=== PATIENT | female | born 1935 | race Caucasian/White ===

== ENCOUNTER 2017-08-25 08:24 | Outpatient (CLI) | payer MEDICARE, BC ==
--- NOTE | 2017-08-25 11:42 | MMO ---
BILATERAL SCREENING MAMMOGRAM: HISTORY: Annual screening exam. COMPARISON: 08/11/2016, 08/05/2015, 08/02/2014, 08/02/2013, 08/01/2012 FINDINGS: Films are reviewed with the assistance of computer aided detection. Scattered fibroglandular changes of both breasts are noted. There is no dominant mass or suspicious calcification. A few calcifications in the left breast are stable. IMPRESSION: BI-RADS Category 2: Benign findings. POS: [email or web address]
== END 2017-08-25 08:25 | disposition home or self-care (01) ==
LOC: SCSMAMMO 08:24
PROVIDERS: ATTEND Family Medicine
DX: Z12.31 Encounter for screening mammogram for malignant neoplasm of breast (principal)
CPT/HCPCS: 77067

== ENCOUNTER 2018-09-07 14:39 | Outpatient (CLI) | payer MEDICARE, BC ==
--- NOTE | 2018-09-07 18:01 | MMO ---
BILATERAL MAMMOGRAMS: 09/07/18 HISTORY: Screening mammography. COMPARISON: Multiple exams back to 08/02/14. FINDINGS: Scattered fibroglandular densities. No dominant mass or suspicious calcifications. Study was evaluate d with the assistance of computer aided detection. IMPRESSION: BIRADS 1: Negative Routine annual screening mammography (for women over age 40) POS: JETHRO
== END 2018-09-07 14:40 | disposition home or self-care (01) ==
LOC: SCSMAMMO 14:39
PROVIDERS: ATTEND Family Medicine
DX: Z12.31 Encounter for screening mammogram for malignant neoplasm of breast (principal)
CPT/HCPCS: 77067

== ENCOUNTER 2019-06-06 08:22 | Outpatient (CLI) | payer MEDICARE, BC ==
--- NOTE | 2019-06-06 08:59 | BD ---
EXAM: DEXA bone density examination HISTORY: 83-year-old postmenopausal female for screening COMPARISON: 06/24/2004 FINDINGS: L1--bone mineral density 1.157 g/sq cm; T score 1.5 L2--bone mineral density 1.087 g/sq cm; T score 0.5 L3--bone mineral density 1.182 g/sq cm; T score 0.9 L4--bone mineral density 1.185 g/sq cm; T score 1.1 Total L1-L4--bone mineral density 1.154 g/sq cm; T score 1.0 Left femoral neck--bone mineral density0.739; T score -1.0 Total proximal left femur--bone mineral density 0.906; T score -0.3 IMPRESSION: Osteopenia This patient has a 10 year WHO fracture risk of a major osteoporotic fracture of 15% and of a hip fracture of 3.6%.
== END 2019-06-06 08:23 | disposition home or self-care (01) ==
LOC: BICMAMMO 08:22
PROVIDERS: ATTEND Internal Medicine Rheumatology
DX: M81.8 Other osteoporosis without current pathological fracture (principal); M85.852 Other specified disorders of bone density and structure, left thigh
CPT/HCPCS: 77080

== ENCOUNTER 2019-06-06 08:50 | Outpatient (CLI) | payer MEDICARE, BC ==
--- NOTE | 2019-06-06 09:32 | RAD ---
EXAM: 2 views of the left hip HISTORY: Left hip pain and sacroiliitis COMPARISON: None FINDINGS: 2 views of the left hip shows no evidence of acute fracture or dislocation. No degenerative changes are seen. No soft tissue swelling is present. Surgical clips are seen in the pelvis. IMPRESSION: No evidence of acute osseous abnormality.
--- NOTE | 2019-06-06 09:33 | RAD ---
EXAM: 2 views of the right hip HISTORY: Right hip pain and sacroiliitis COMPARISON: None FINDINGS: 2 views of the right hip shows no evidence of acute fracture or dislocation. No degenerativ e changes are seen. No soft tissue swelling is present. Vascular calcifications are seen. Surgical clips are seen in the pelvis. IMPRESSION: No evidence of acute osseous abnormality.
--- NOTE | 2019-06-06 09:36 | RAD ---
Exam: Single view of the pelvis HISTORY: Sacroiliitis COMPARISON: None FINDINGS: A single view the pelvis shows no evidence of acute fracture or dislocation. No degenerativ e changes seen in either hip. No significant degenerative changes are seen in either sacroiliac joint. Surgical clips are seen in the pelvis. Vascular calcifications are seen. IMPRESSION: No evidence of acute osseous abnormality.
== END 2019-06-06 08:51 | disposition home or self-care (01) ==
LOC: BICRAD 08:50
PROVIDERS: ATTEND Internal Medicine Rheumatology
DX: M46.1 Sacroiliitis, not elsewhere classified (principal)
CPT/HCPCS: 72170

== ENCOUNTER 2020-06-11 08:44 | Outpatient (CLI) | payer MEDICARE, BC ==
--- NOTE | 2020-06-11 09:09 | BD ---
EXAM: DEXA bone density examination HISTORY: 85-year-old postmenopausal female for screening COMPARISON: 06/06/2019 FINDINGS: L1--bone mineral density 1.119 g/sq cm; T score 1.2 L2--bone mineral density 1.143 g/sq cm; T score 1.0 L3--bone mineral density 1.153 g/sq cm; T score 0.6 L4--bone mineral density 1.187 g/sq cm; T score 1.1 Total L1-L4--bone mineral density 1.154 g/sq cm; T score 1.0 Left femoral neck--bone mineral density0.747; T score -0.9 Total proximal left femur--bone mineral density 0.895; T score -0.4 IMPRESSION: Normal bone density. This patient has a 10 year WHO fracture risk of a major osteoporotic fracture of 15% and of a hip fracture of 3.5%. When compared to the prior examination, the bone density has not changed significantly.
== END 2020-06-11 08:45 | disposition home or self-care (01) ==
LOC: BICMAMMO 08:44
PROVIDERS: ATTEND Internal Medicine Rheumatology
DX: M81.8 Other osteoporosis without current pathological fracture (principal)
CPT/HCPCS: 77080

== ENCOUNTER 2022-05-14 10:29 | Outpatient (CLI) | payer MEDICARE, BC | END 2022-05-14 10:30 | disposition home or self-care (01) | LOC: BICRAD 10:29 | PROVIDERS: ATTEND Internal Medicine Rheumatology | DX: M54.2 Cervicalgia (principal); M47.812 Spondylosis without myelopathy or radiculopathy, cervical region | CPT/HCPCS: 72052 ==

== ENCOUNTER 2022-06-19 09:25 | Outpatient (CLI) | payer MEDICARE, BC | END 2022-06-19 09:26 | disposition home or self-care (01) | LOC: BICMAMMO 09:25 | PROVIDERS: ATTEND Internal Medicine Rheumatology | DX: M81.8 Other osteoporosis without current pathological fracture (principal) | CPT/HCPCS: 77080 ==

== ENCOUNTER 2022-11-13 10:45 | Outpatient (CLI) | payer MEDICARE, BC | END 2022-11-13 10:46 | disposition home or self-care (01) | LOC: BICRAD 10:45 | PROVIDERS: ATTEND Internal Medicine Rheumatology | DX: M17.11 Unilateral primary osteoarthritis, right knee (principal) ==

== ENCOUNTER 2024-06-30 10:55 | Outpatient (CLI) | payer MEDICARE | END 2024-06-30 10:56 | disposition home or self-care (01) | LOC: BICMAMMO 10:55 | PROVIDERS: ATTEND Internal Medicine Rheumatology | DX: M81.8 Other osteoporosis without current pathological fracture (principal); M85.88 Other specified disorders of bone density and structure, other site | CPT/HCPCS: 77080 ==

== ENCOUNTER 2024-07-05 08:04 | Outpatient (CLI) | payer MEDICARE | END 2024-07-05 08:05 | disposition home or self-care (01) | LOC: NM 08:04 | PROVIDERS: ATTEND Specialist | DX: M17.11 Unilateral primary osteoarthritis, right knee (principal); T84.84XA Pain due to internal orthopedic prosthetic devices, implants and grafts, initial encounter; Z96.651 Presence of right artificial knee joint | CPT/HCPCS: 78315; A9503 ==